=== PATIENT | female | born 1970 | race Caucasian/White ===

== ENCOUNTER → 2016-09-09 | Outpatient (CLI) | payer OTHER ==
--- NOTE | 2016-09-09 10:07 | DIAGNOSTIC IMAGING REPORT ---
RIGHT HAND MIN 3 VIEWS ROUTINE CLINICAL HISTORY: Psoriasis, right hand pain. COMPARISON: None. DISCUSSION: No fractures are visualized. There are no erosive changes. There is a small particular calcification at the level of the distal interphalangeal joint of the fourth finger, as well as at the level of the distal interphalangeal joint of the index finger. IMPRESSION: 1. No acute fractures. 2. Mild degenerative changes with periarticular calcifications at the level of the distal interphalangeal joints of the index and ring fingers. 3. No bony erosions identified Electronically signed by: Marv Moulton M.D. 09/09/2016 10:05 AM Dictated Date/Time: 09/09/2016 10:04 AM
--- NOTE | 2016-09-09 10:07 | DIAGNOSTIC IMAGING REPORT ---
LEFT HAND MIN 3 VIEWS ROUTINE CLINICAL HISTORY: L40.9 [id number] Bilateral hand painM79.642 Low back pain COMPARISON STUDY: None. FINDINGS: No fracture or dislocation. No definite erosions. Soft tissues are within normal limits. Bone mineralization is intact. Severe osteoarthritis at the first carpometacarpal joint with [id number] articulation, mild radial subluxation, and marginal osteophytes. There is also mild cartilage space narrowing at the DIP joints of the hand. IMPRESSION: Osteoarthritis within the left hand as described above. Electronically signed by: Bryan Chavez M.D. 09/09/2016 10:06 AM Dictated Date/Time: 09/09/2016 10:04 AM
--- NOTE | 2016-09-09 10:09 | DIAGNOSTIC IMAGING REPORT ---
SI JOINTS 3 OR MORE VIEWS CLINICAL HISTORY: L40.9 [id number] Bilateral hand painM79.642 Low back pain COMPARISON STUDY: None. FINDINGS: The sacrum is intact. No fractures identified. The left sacral joints within normal limits. There is mild sclerosis within the right sacroiliac joint. No definite erosions. IMPRESSION: Mild asymmetric sclerosis within the right sacroiliac joint. This could represent an early asymmetric sacroiliitis. Electronically signed by: Bryan Chavez M.D. 09/09/2016 10:08 AM Dictated Date/Time: 09/09/2016 10:06 AM
--- NOTE | 2016-09-09 10:18 | DIAGNOSTIC IMAGING REPORT ---
L-SPINE MIN 4 VIEWS ROUTINE CLINICAL HISTORY: 46 years-old Female presenting with psoriasis, bilateral hand and low back pain. TECHNIQUE: Frontal, bilateral oblique, and lateral views of the lumbar spine with coned in lateral view of the lumbosacral junction were obtained. COMPARISON: None. FINDINGS: Vertebral bodies maintain normal height and alignment. Intervertebral disc height loss at L4-5, where there is focal degenerative change. No radiographic evidence of acute fracture or subluxation. There may be mild osseous neuroforaminal narrowing at L4-5 on the right. Nonobstructive bowel gas pattern. Lung bases clear. IMPRESSION: Focal degenerative change at L4-5 with possible osseous neural foraminal narrowing on the right. Electronically signed by: Kenneth Botello M.D. 09/09/2016 10:17 AM Dictated Date/Time: 09/09/2016 10:04 AM
[2016-09-09 10:39] LABS: TOTAL IRON BINDING CAPACITY 381 mcg/dl (250-450)
== END | disposition home or self-care (01) ==
LOC: C.RAD1850 09:21
PROVIDERS: ATTEND Internal Medicine Rheumatology
DX: L40.9 Psoriasis, unspecified (principal); M79.641 Pain in right hand; M79.642 Pain in left hand; M54.5 Low back pain; M19.042 Primary osteoarthritis, left hand

== ENCOUNTER → 2016-10-28 | Outpatient (CLI) | payer OTHER ==
[2016-10-28 13:23] LABS: BASO % 0.2 %; BASO ABS # 0.02 K/uL (0-0.2); COMPLETE YES; EOS % 2.3 %; HEMATOCRIT 40.3 % (37-47); IG% 0.2 %; LYMPH ABS # 2.11 K/uL (1.2-3.4); MEAN CORPUSCULAR HEMOGLOBIN 31.6 pg (25-34); MEAN CORPUSCULAR HGB CONC 34.7 g/dl (32-36); MEAN PLATELET VOLUME 10.2 fL (7.4-10.4); MONO % 5.3 %; PLATELET COUNT 266 K/uL (130-400); RED BLOOD COUNT 4.43 M/uL (4.2-5.4); WHITE BLOOD COUNT 8.81 K/uL (4.8-10.8)
[2016-10-28 14:06] LABS: ALT/SGPT 16 U/L (12-78); AST/SGOT 18 U/L (15-37); CREATININE 0.66 mg/dl (0.60-1.20)
== END | disposition home or self-care (01) ==
LOC: C.LABMFLN 08:55
PROVIDERS: ATTEND Internal Medicine Rheumatology
DX: M54.40 Lumbago with sciatica, unspecified side (principal); Z79.1 Long term (current) use of non-steroidal anti-inflammatories (NSAID); L40.50 Arthropathic psoriasis, unspecified; Z79.899 Other long term (current) drug therapy

== ENCOUNTER → 2016-11-08 | Outpatient (CLI) | payer OTHER | END | disposition home or self-care (01) | LOC: C.LAB1850 10:31 | PROVIDERS: ATTEND Internal Medicine Rheumatology | DX: Z51.81 Encounter for therapeutic drug level monitoring (principal); Z79.1 Long term (current) use of non-steroidal anti-inflammatories (NSAID); L40.50 Arthropathic psoriasis, unspecified; Z79.899 Other long term (current) drug therapy; M79.646 Pain in unspecified finger(s) ==

== ENCOUNTER → 2017-04-17 | Outpatient (CLI) | payer OTHER ==
[2017-04-17 18:02] LABS: BASO % 0.3 %; BASO ABS # 0.03 K/uL (0-0.2); EOS % 4.9 %; EOS ABS # 0.46 K/uL (0-0.5); HEMATOCRIT 39.4 % (37-47); HEMOGLOBIN 13.4 g/dL (12.0-16.0); IG# 0.03 K/uL (0.00-0.02); LYMPH % 47.2 %; LYMPH ABS # 4.44 K/uL (1.2-3.4); MEAN CORPUSCULAR HEMOGLOBIN 30.9 pg (25-34); MEAN PLATELET VOLUME 10.5 fL (7.4-10.4); MONO % 7.9 %; MONO ABS # 0.74 K/uL (0.11-0.59); NEUT % 39.4 %; NEUT ABS # 3.71 K/uL (1.4-6.5); PLATELET COUNT 240 K/uL (130-400); RED CELL DISTRIBUTION WIDTH SD 43.4 fL (36.4-46.3); WHITE BLOOD COUNT 9.41 K/uL (4.8-10.8)
[2017-04-17 18:30] LABS: ALBUMIN 3.9 gm/dl (3.4-5.0); ALT/SGPT 19 U/L (12-78); AST/SGOT 16 U/L (15-37); CREATININE 0.75 mg/dl (0.60-1.20)
[2017-04-17 18:32] LABS: ALKALINE PHOSPHATASE 50 U/L (45-117); TOTAL PROTEIN 6.9 gm/dl (6.4-8.2)
== END | disposition home or self-care (01) ==
LOC: C.LABMFLN 15:36
PROVIDERS: ATTEND Internal Medicine Rheumatology
DX: L40.50 Arthropathic psoriasis, unspecified (principal)